=== PATIENT | female | born 1965 | race Caucasian/White ===

== ENCOUNTER 2019-01-17 13:22 | Emergency (ER) | payer OTHER ==
[~2019-01-17] VITALS: Ht 160 cm; Wt 127.3 kg
[~2019-01-17 13:22] MED LIST: ARIP5SOL2 PO; FLUO40CA7 PO
[2019-01-17] MEDS ORDERED: SULFAMETHOX/TRIMETH DS 800-160 MG/TABLET PO ONE (14:00)
[2019-01-17] MEDS ORDERED: HydrOXYzine PAMOATE 50 MG CAPSULE PO ONE (14:15)
[2019-01-17 14:58] VITALS: BP 138/93
== END 2019-01-17 15:13 | disposition home or self-care (01) ==
LOC: EMS 13:24
DX: L03.116 Cellulitis of left lower limb (principal); F32.9 Major depressive disorder, single episode, unspecified; Z87.891 Personal history of nicotine dependence